=== PATIENT | male | born 1985 | race Two or more races ===

== ENCOUNTER → 2017-08-01 | Outpatient (REF) | payer OTHER ==
[2017-08-01 12:48] LABS: IMMOTILE SPERM ABSENT (ABSENT); MOTILE SPERM ABSENT (ABSENT)
[2017-08-01 12:49] LABS: IMMMOTILE SPERM CENTRIFUGED ABSENT (ABSENT); MOTILE SPERM CENTRIFUGED ABSENT (ABSENT)
== END ==
LOC: M SMT 11:25
PROVIDERS: ATTEND Urology
DX: Z30.2 Encounter for sterilization (principal)